=== PATIENT | male | born 1990 | race Two or more races ===

== ENCOUNTER 2020-06-24 09:06 | Emergency (ER) | payer MEDICAID, OTHER, SELFPAY ==
[~2020-06-24] VITALS: Ht 180.3 cm; Wt 123.4 kg
--- NOTE | 2020-06-24 09:16 | NUR ---
"I CRACK MY TOOTH WORSE THAN IT WAS AND I HAVE HEAD PAIN." PT STATES "CRACKED" TOOTH WHEN "EATING SOMETHING." PT STATES PAIN STARTED THURSDAY NIGHT.
[2020-06-24] MEDS ORDERED: KETOROLAC 30 MG/1 ML ONE (09:54)
--- NOTE | 2020-06-24 09:59 | NUR ---
PRECEPTOR RN: PT MEDICATED PER EMAR. VSS. PT SITTING ON GURNEY WATCHING TV. NO NEEDS AT THIS TIME.
[2020-06-24] MEDS ORDERED: KETOROLAC 30 MG/1 ML IM ONE (10:00)
[2020-06-24 10:26] VITALS: BP 125/82
--- NOTE | 2020-06-24 10:26 | NUR ---
PRECEPTOR RN: PT DISCHARGED HOME IN A STABLE CONDITION. DC INSTRUCTIONS DISCUSSED WITH PT. PT VERBALIZED UNDERSTANDING. SCRIPT AND WORK NOTE PROVIDED TO PT. NO FURTHER QUESTIONS OR CONCERNS EXPRESSED AT THAT TIME. PT AMBULATED WITH RN TO DC DESK WITH A STEADY GAIT.
== END 2020-06-24 10:28 | disposition home or self-care (01) ==
LOC: ED 09:51
DX: K02.9 Dental caries, unspecified (principal); K08.89 Other specified disorders of teeth and supporting structures
CPT/HCPCS: 96372; 99283; J1885